=== PATIENT | male | born 1950 | race Caucasian/White ===

== ENCOUNTER 2019-05-29 07:08 | Day surgery (SDC) | payer OTHER ==
[2019-05-29 07:31] VITALS: BMI 26.6
[2019-05-29] MEDS ORDERED: PROPOFOL 20 ML ONE (09:43)
[2019-05-29 10:56] VITALS: BP 116/70; PULSE 73; TEMP 98.3
== END 2019-05-29 11:00 | disposition home or self-care (01) ==
LOC: FASU-ENDO 07:08
PROVIDERS: ATTEND Internal Medicine Gastroenterology
PROC: 0DJD8ZZ Inspection of Lower Intestinal Tract, Via Natural or Artificial Opening Endoscopic (ICD-10-PCS; principal; 2019-05-29 09:50)
DX: Z86.010 Personal history of colon polyps (principal)

== ENCOUNTER 2024-06-16 06:57 | Day surgery (SDC) | payer OTHER ==
[2024-06-10 14:15] VITALS: BMI 27.0
[2024-06-16] MEDS ORDERED: PROPOFOL 160 ML ONE (07:39)
[2024-06-16 10:00] VITALS: RESP 18; TEMP 97.2
[2024-06-16 11:20] VITALS: BP 110/58; PULSE 65
== END 2024-06-16 09:22 | disposition home or self-care (01) ==
LOC: FASU-ENDO 06:57
PROVIDERS: ATTEND Internal Medicine Gastroenterology
PROC: 0DBH8ZX Excision of Cecum, Via Natural or Artificial Opening Endoscopic, Diagnostic (ICD-10-PCS; principal; 2024-06-16 08:14)
DX: Z12.11 Encounter for screening for malignant neoplasm of colon (principal); K63.5 Polyp of colon; Z86.0100 Personal history of colon polyps, unspecified
CPT/HCPCS: 82962; 88305-TC